=== PATIENT | female | born 1980 | race Caucasian/White ===

== ENCOUNTER 2016-09-11 09:39 | Emergency (ER) | payer OTHER ==
[2016-09-11 09:47] VITALS: BP 158/72; PULSE 82; TEMP 98.5; BMI 45.9
--- NOTE | 2016-09-11 09:47 | PDOC ---
History of Present Illness - General History Source: Patient, EMS, Old Records Exam Limitations: No Limitations - History of Present Illness Initial Comments: 09/11/16 10:07 The patient is a 35 year old female with a significant past medical history of spinal stenosis, morbid obesity, fibromyalgia,polycystic ovary disease, BIBA to the emergency department today for further evaluation of a varicose vein rupture just prior to presenting and leg swelling for one week. The patient states that she scratched her varicose vein and began to bleed profusely. The patient reports associated bilateral lower extremity swelling and headache. The patient notes that she has had leg swelling previously and that it normally occurs in the Summer. PAST MEDICAL HISTORY: No significant history reported PAST SURGICAL HISTORY: No significant history reported FAMILY HISTORY: No pertinent history reported SOCIAL HISTORY: None reported ALLERGIES: As per nursing notes MEDICATIONS: Reviewed <Eddie Timmons - Last Filed: 09/11/16 10:06> - General History Source: Patient, Old Records Exam Limitations: No Limitations <Gabby Bill - Last Filed: 09/11/16 10:15> - General Chief Complaint: Injury Stated Complaint: varicose vein BLEEDING Time Seen by Provider: 09/11/16 09:47 Past History - Past Medical History Other medical history: spinal stenosis, morbid obestiy, fibromyalgia,polycystic ovary disease - Psycho/Social/Smoking Cessation Hx Anxiety: No Suicidal Ideation: No Smoking History: Never smoked Have you smoked in the past 12 months: No Information on smoking cessation initiated: No Hx Alcohol Use: No Drug/Substance Use Hx: No Substance Use Type: None <Gabby Bill - Last Filed: 09/11/16 10:15> Review of Systems - Review of Systems Able to Perform ROS?: Yes Comments:: 09/11/16 10:07 CONSTITUTIONAL: Absent: fever, chills, diaphoresis, generalized weakness, malaise, loss of appetite HEENT: Absent: rhinorrhea, nasal congestion, throat pain, throat swelling, difficulty swallowing, mouth swelling, ear pain, eye pain, visual Changes CARDIOVASCULAR: Absent: chest pain, syncope, palpitations, irregular heart rate, lightheadedness , peripheral edema RESPIRATORY: Absent: cough, shortness of breath, dyspnea with exertion, orthopnea, wheezing, stridor, hemoptysis GASTROINTESTINAL: Absent: abdominal pain, abdominal distension, nausea, vomiting, diarrhea, constipation, melena, hematochezia GENITOURINARY: Absent: dysuria, frequency, urgency, hesitancy, hematuria, flank pain, genital pain MUSCULOSKELETAL: Absent: myalgia, arthralgia, joint swelling SKIN: Absent: rash, itching, pallor HEMATOLOGIC/IMMUNOLOGIC: Absent: easy bleeding, easy bruising, lymphadenopathy, frequent infections ENDOCRINE: Present: Bilateral lower extremity swelling Absent: unexplained weight gain, unexplained weight loss, heat intolerance, cold intolerance NEUROLOGIC: Present: Headache Absent:, focal weakness or paresthesias, dizziness, unsteady gait, seizure, mental status changes, bladder or bowel incontinence PSYCHIATRIC: Absent: anxiety, depression, suicidal or homicidal ideation, hallucinations. <Eddie Timmons - Last Filed: 09/11/16 10:06> *Physical Exam - Vital Signs Last Vital Signs Temp Pulse Resp BP Pulse Ox 98.5 F 82 18 158/72 100 09/11/16 09:44 09/11/16 09:44 09/11/16 09:44 09/11/16 09:44 09/11/16 09:44 - Physical Exam Comments: 09/11/16 10:07 GENERAL: Well developed, well nourished. Awake and alert. In no acute distress. HEENT: Normocephalic, atraumatic. PERRLA, EOMI. No conjunctival pallor. Sclera are non- icteric. Moist mucous membranes. Oropharynx is clear. NECK: Supple. Full ROM. No JVD. Carotid pulses 2+ and symmetric, without bruits. No thyromegaly. No lymphadenopathy. CARDIOVASCULAR: Regular rate and rhythm. No murmurs, rubs, or gallops. Distal pulses are 2+ and symmetric. PULMONARY: No evidence of respiratory distress. Lungs clear to auscultation bilaterally. No wheezing, rales or rhonchi. ABDOMINAL: Soft. Non-tender. Non-distended. No rebound or guarding. No organomegaly. Normoactive bowel sounds. MUSCULOSKELETAL Normal range of motion at all joints. No bony deformities or tenderness. No CVA tenderness. EXTREMITIES: (+) Bilateral 1+ lower extremity edema with varicosity but no active bleeding. SKIN: Warm and dry. Normal capillary refill. No rashes. No jaundice. NEUROLOGICAL: Alert, awake, appropriate. Cranial nerves 2-12 intact. No deficits to light touch and temperature in face, upper extremities and lower extremities. No motor deficits in the in face, upper extremities and lower extremities. Normoreflexic in the upper and lower extremities. Normal speech. Toes are downgoing bilaterally. Gait is normal without ataxia. PSYCHIATRIC: Cooperative. Good eye contact. Appropriate mood and affect. <Eddie Timmons - Last Filed: 09/11/16 10:06> - Vital Signs Last Vital Signs Temp Pulse Resp BP Pulse Ox 98.5 F 82 18 158/72 100 09/11/16 09:44 09/11/16 09:44 09/11/16 09:44 09/11/16 09:44 09/11/16 09:44 <Gabby Bill - Last Filed: 09/11/16 10:15> Medical Decision Making - Medical Decision Making 09/11/16 09:57 35 y/o obese female with no significant PMHx presents to the ED with a bleeding varicose vein in her LLE that has stopped. Plan: 1. Discharge home 2. Follow-up with vascular surgery and PCP 3. Return to the ED if Sx persist, worsen or new Sx arise <Gabby Bill - Last Filed: 09/11/16 10:15> *DC/Admit/Observation/Transfer - Attestations Scribe Attestion: 09/11/16 10:07 Documentation prepared by Eddie Timmons, acting as medical staffing coordinator for Gabby Bill MD. <Eddie Timmons - Last Filed: 09/11/16 10:06> - Discharge Dispostion Admit: No - Attestations Physician Attestion: 09/11/16 09:59 I, Dr. Gabby Bill, attest that the scribes documentation that appears above has been prepared under my direction and personally reviewed by me in its entirety. I confirmed that the note above accurately reflects all work, treatment, procedures, and medical decision-making performed by me. <Gabby Bill - Last Filed: 09/11/16 10:15> Diagnosis at time of Disposition: Bleeding from varicose veins of left lower extremity - Discharge Dispostion Disposition: HOME Condition at time of disposition: Stable - Patient Instructions Printed Discharge Instructions: DI for Varicose Veins Additional Instructions: Follow-up with vascular surgery-Peter Anderson MD [phone] and for primary care, you may call Dr. Cortez [phone]. Your blood pressure is mildly elevated. To decrease the swelling in your legs, limit your salt intake and elevate your legs as much as possible. Do not scratch the area or pick at the scab. If bleeding recurs, apply direct pressure to the bleeding. Return to the ED if symptoms persist, worsen or new symptoms arise.
== END 2016-09-11 10:43 | disposition home or self-care (01) ==
LOC: JER 09:39
DX: I83.892 Varicose veins of left lower extremity with other complications (principal); E66.01 Morbid (severe) obesity due to excess calories; Z68.42 Body mass index [BMI] 45.0-49.9, adult; M48.00 Spinal stenosis, site unspecified; M79.7 Fibromyalgia; E28.2 Polycystic ovarian syndrome
CPT/HCPCS: 99281-25

== ENCOUNTER 2017-08-30 19:55 | Emergency (ER) | payer OTHER ==
[2017-08-30 20:31] VITALS: BP 167/97; PULSE 67; TEMP 98.1; BMI 46.5
[2017-08-30] MEDS ORDERED: ALBUTEROL SO4 0.083% IH SOL 2.5 MG/3 ML VIAL.NEB. NEB PRN (21:42)
--- NOTE | 2017-08-30 21:43 | PDOC ---
History of Present Illness - General Chief Complaint: Cold Symptoms Stated Complaint: S.O.B Time Seen by Provider: 08/30/17 20:31 History Source: Patient Exam Limitations: No Limitations - History of Present Illness Initial Comments: 08/30/17 22:25 36-year-old woman with past medical history fibromyalgia presents emergency Department with fever, facial pain, productive cough for the past 2 weeks. Patient states her daughter is very similar symptoms approximately 3 weeks ago after 1 week of the child being sick the mother began to experience similar symptoms. Patient has not checked her aperture but reports subjective fevers to go along with a productive cough. Patient states her facial pain worsens when leaning forward. Patient reports purulent nasal drainage for the past 14 days. Patient denies any blurry vision, dizziness, headaches, shortness of breath. Past History - Past Medical History Allergies/Adverse Reactions: Allergies Allergy/AdvReac Type Severity Reaction Status Date / Time Penicillins Allergy Verified 08/30/17 20:27 Sulfa (Sulfonamide Allergy Verified 08/30/17 20:27 Antibiotics) Home Medications: Ambulatory Orders Buprenorphine HCl/Naloxone HCl [Suboxone 8 mg-2 mg Sl Tablets] 1 each SL TID Topiramate [Topamax -] 250 mg PO DAILY 09/11/16 Zolpidem Tartrate [Ambien] 5 mg PO HS 09/11/16 Fluconazole 150 mg PO ONCE #1 tablet 08/30/17 Ibuprofen 600 mg PO ASDIR 08/30/17 levoFLOXacin [Levaquin] 750 mg PO DAILY #5 tab 08/30/17 - Suicide/Smoking/Psychosocial Hx Smoking History: Current every day smoker Have you smoked in the past 12 months: No Number of Cigarettes Smoked Daily: 10 Information on smoking cessation initiated: Yes Hx Alcohol Use: No Drug/Substance Use Hx: No Substance Use Type: None Review of Systems - Review of Systems Able to Perform ROS?: Yes Is the patient limited Luxembourgish proficient: No Constitutional: Yes: See HPI HEENTM: Yes: See HPI Respiratory: Yes: See HPI Cardiac (ROS): No: Symptoms Reported ABD/GI: No: Symptoms Reported : No: Symptoms Reported Musculoskeletal: No: Symptoms Reported Integumentary: No: Symptoms Reported Neurological: No: Symptoms reported Endocrine: No: Symptoms Reported *Physical Exam - Vital Signs Last Vital Signs Temp Pulse Resp BP Pulse Ox 98.1 F 67 18 167/97 100 08/30/17 20:25 08/30/17 20:25 08/30/17 20:25 08/30/17 20:25 08/30/17 20:25 - Physical Exam HEENT: positive: EOMI, ARMANI, TMs Normal, Nasal Congestion, Rhinorrhea, Sinus Tenderness Neck: positive: Trachea midline, Supple Respiratory/Chest: positive: Lungs Clear, Wheezing (Expirational). negative: Respiratory Distress, Accessory Muscle Use Cardiovascular: positive: Regular Rhythm, Regular Rate. negative: Murmur Gastrointestinal/Abdominal: positive: Normal Bowel Sounds, Soft. negative: Tender Musculoskeletal: positive: Normal Inspection. negative: CVA Tenderness Extremity: positive: Normal Inspection Integumentary: positive: Normal Color, Dry, Warm Neurologic: positive: Alert, Normal Response ED Treatment Course - RADIOLOGY Radiology Studies Ordered: Category Date Time Status CHEST PA & LAT [RAD] Stat Radiology 08/30/17 21:42 Ordered Medical Decision Making - Medical Decision Making 08/30/17 22:27 A/P: 36-year-old female with 2 weeks of fevers, productive cough and sinus congestion and tenderness Tenderness to palpation of maxillary and frontal sinuses Nasal congestion present Oropharynx clear without erythema or exudates Lungs clear with expiratory wheezes present Speaking full sentences. No respiratory distress noted Patient likely has an acute sinusitis given productive cough and subjective fevers cannot rule out a pneumonia. Chest x-ray, albuterol treatment, reassess 08/30/17 22:30 Chest x-rays read by me: Angles clear. Cardiac silhouette is within normal limits. No focal infiltrations or consolidations present. Visualized osseous structures intact. No pneumothorax is seen. Given chest x-ray findings, it is less likely that the child has a pneumonia. Patient is a daily smoker one pack per day and likely has a chronic bronchitis. I will treat the current bronchitis with Levaquin 750 mg orally once a day for 5 days which will cover an acute sinusitis also. Patient verbalizes understanding of discharge instructions. *DC/Admit/Observation/Transfer Diagnosis at time of Disposition: Chronic bronchitis with acute exacerbation Sinusitis, acute Qualifiers: Sinusitis location: maxillary Recurrence: not specified as recurrent Qualified Code(s): J01.00 - Acute maxillary sinusitis, unspecified - Discharge Dispostion Disposition: HOME Condition at time of disposition: Stable - Prescriptions Prescriptions: Fluconazole 150 mg PO ONCE #1 tablet levoFLOXacin [Levaquin] 750 mg PO DAILY #5 tab - Referrals Referrals: Diamante Peña MD [Primary Care Provider] - - Patient Instructions Printed Discharge Instructions: DI for Chronic Bronchitis, DI for Sinusitis Additional Instructions: Take Levaquin 750 mg 1 tablet every day for the next 5 days. Finish all the antibiotics even if he started to feel better. Return to emergency department for fevers, chills, worsening symptoms or any other concerns. Stop smoking. Thank you very much for choosing us to provide your emergent healthcare needs. - Post Discharge Activity
[2017-08-30] MEDS ORDERED: ALBUTEROL SO4 0.083% IH SOL 2.5 MG/3 ML VIAL.NEB. NEB ONE (21:44)
== END 2017-08-30 22:47 | disposition home or self-care (01) ==
LOC: JERFT 19:55
PROC: 3E0F7GC Introduction of Other Therapeutic Substance into Respiratory Tract, Via Natural or Artificial Opening (ICD-10-PCS; principal; 2017-08-30)
DX: J42 Unspecified chronic bronchitis (principal); J01.00 Acute maxillary sinusitis, unspecified
CPT/HCPCS: 71046-TC-FY; 84703; 99281-25

== ENCOUNTER 2018-06-08 17:50 | Inpatient (IN) | payer OTHER ==
[2018-06-08 18:45] VITALS: BMI 48.3
--- NOTE | 2018-06-08 19:04 | HP ---
COWS - Scale Resting Pulse: 1= [place] 81-100 Sweatin= Chills/Flushing Restless Observation: 3= Extraneous Movement Pupil Size: 1= Pupils >than Normal Bone or Joint Aches: 2= Severe Diffuse Aches Runny Nose/ Eye Tearin= Runny Nose/Eyes GI Upset > 30mins: 2= Nausea/Diarrhea Tremor Observation: 2= Slight Tremor Visible Yawning Observation: 2= >3x During Session Anxiety or Irritability: 2=Irritable/Anxious Goose Flesh Skin: 0=Smooth Skin COWS Score: 18 CIWA Score Nausea/Vomitin Muscle Tremors: 2 Anxiety: 2 Agitation: 2 Paroxysmal Sweats: 1-Minimal Palms Moist Orientation: 0-Oriented Tacttile Disturbances: 1-Very Mild Itch/Numbness Auditory Disturbances: 1-Very Mild Visual Disturbances: 0-None Headache: 2-Mild CIWA-Ar Total Score: 13 - Admission Criteria [facility] Guidelines: Admission for Medically Managed Detox: Requires at least one of the followin. CIWA greater than 12 2. Seizures within the past 24 hours 3. Delirium tremens within the past 24 hours 4. Hallucinations within the past 24 hours 5. Acute intervention needed for co occurring medical disorder 6. Acute intervention needed for co occurring psychiatric disorder 7. Severe withdrawal that cannot be handled at a lower level of care (continued vomiting, continued diarrhea, abnormal vital signs) requiring intravenous medication and/or fluids 8. Admission ROS S - [facility] Chief Complaint: i need help to stop using heroin and alcohol Allergies/Adverse Reactions: Allergies Allergy/AdvReac Type Severity Reaction Status Date / Time codeine Allergy Verified 06/08/18 19:01 Penicillins Allergy Verified 06/08/18 18:59 Sulfa (Sulfonamide Allergy Verified 06/08/18 18:59 Antibiotics) History of Present Illness: this 37 years old female with heroin and alcohol dependence seeking detox, withdrawal symptom, i stop showed patient is on suboxone but stated she did not used suboxone since 05/23/18 last treatment in 11/10 [facility] obesity nicotine dependence 1 pack bipolar disorder on medication suicidal attempt overdose at age of 11,cutter at age of 17 longest sobriety 8 years plan for methadone program at [facility] had 6 years old boy,staying with the child father,and gand mother from mother side Exam Limitations: No Limitations - Ebola screening Have you traveled outside of the country in the last 21 days: No (N) Have you had contact with anyone from an Ebola affected area: No Have you been sick,other than usual withdrawal symptoms: No Do you have a fever: No - Review of Systems Constitutional: Chills, Loss of Appetite, Malaise, Night Sweats, Changes in sleep, Weakness, Unintentional Wgt. Loss EENT: reports: Tearing, Nose Congestion Respiratory: reports: No Symptoms reported Cardiac: reports: No Symptoms Reported GI: reports: Diarrhea, Nausea, Vomiting, Abdominal cramping : reports: No Symptoms Reported Musculoskeletal: reports: Back Pain, Joint Pain, Muscle Pain, Joint Stiffness Integumentary: reports: Dryness Neuro: reports: Tremors Endocrine: reports: No Symptoms Reported Hematology: reports: No Symptoms Reported Psychiatric: reports: No Sypmtoms Reported, Judgement Intact, Mood/Affect Appropiate, Orientated x3, other (bipolar disorder) Patient History - Patient Medical History Hx Anemia: No Hx Asthma: No Hx Chronic Obstructive Pulmonary Disease (COPD): No Hx Cancer: No Hx Cardiac Disorders: No Hx Congestive Heart Failure: No Hx Hypertension: No Hx Hypercholesterolemia: No Hx Pacemaker: No HX Cerebrovascular Accident: No Hx Seizures: No Hx Dementia: No Hx Diabetes: No Hx Gastrointestinal Disorders: No Hx Liver Disease: No Hx Genitourinary Disorders: No Hx Sexually Transmitted Disorders: No Hx Renal Disease (ESRD): No Hx Thyroid Disease: No Hx Human Immunodeficiency Virus (HIV): No (last 11/09 negative) Hx Hepatitis C: No Hx Depression: Yes Hx Suicide Attempt: Yes (AGE 11 ovedose,cutter age 17) Hx Bipolar Disorder: Yes Hx Schizophrenia: No Other Medical History: no suicidal,no homicidal,fibromyalgia - Patient Surgical History Past Surgical History: No - PPD History Previous Implant?: Yes Documented Results: Negative w/o proof Implanted On Prior R Admission?: Yes PPD to be Administered?: Yes - Reproductive History Patient is a Female of Child Bearing Age (11 -55 yrs old): Yes Last Menstrual Period: 05/22/18 Patient : No - Smoking Cessation Smoking history: Current every day smoker Have you smoked in the past 12 months: No Aproximately how many cigarettes per day: 20 Cigars Per Day: 0 Hx Chewing Tobacco Use: No Initiated information on smoking cessation: Yes 'Breaking Loose' booklet given: 06/08/18 - Substance & Tx. History Hx Alcohol Use: Yes Hx Substance Use: Yes Substance Use Type: Alcohol, Heroin Hx Substance Use Treatment: Yes ([facility] 11/09) - Substances Abused Heroin Route: Inhalation Frequency: Daily Amount used: 4 to 5 bags Age of first use: 14 Date of Last Use: 06/08/18 Alcohol Route: Oral Frequency: Daily Amount used: 1pint of rum Age of first use: 10 Date of Last Use: 06/08/18 Family Disease History - Family Disease History Family Disease History: Diabetes: Father (ALCOHOLISM, HTN/HLD), Heart Disease: Father, Mother (HTN/HLD, ), CA: Mother, Other: Grandparent (ALCOHOLISM), Father , Brother (MENTAL HEALTH/ADDICTS/ ALCOHOLISM) Admission Physical Exam [facility] - Vital Signs Vital Signs: Vital Signs - 24 hr 06/08/18 18:42 Temperature 98.6 F Pulse Rate 88 Respiratory 18 Rate Blood Pressure 153/97 - Physical General Appearance: Yes: Moderate Distress, Obese, Tremorous, Irritable, Sweating, Anxious HEENTM: Yes: Normal ENT Inspection, ARMANI, Pharynx Normal Respiratory: Yes: Lungs Clear, Normal Breath Sounds, No Respiratory Distress Neck: Yes: Within Normal Limits, Supple, Trachea in good position Breast: Yes: Breast Exam Deferred Cardiology: Yes: Within Normal Limits, Regular Rhythm, Regular Rate, S1, S2 Abdominal: Yes: Within Normal Limits, Normal Bowel Sounds, Non Tender, Soft Genitourinary: Yes: Within Normal Limits Back: Yes: Muscle Spasm Musculoskeletal: Yes: full range of Motion, Back pain, Muscle Pain Extremities: Yes: Normal Range of Motion, Tremors Neurological: Yes: hi teacher II-XII NML intact, Alert, Motor Strength 5/5 Integumentary: Yes: Dry Lymphatic: Yes: Within Normal Limits - Diagnostic (1) Opioid dependence with withdrawal Current Visit: Yes Status: Acute (2) Alcohol dependence with uncomplicated withdrawal Current Visit: Yes Status: Acute (3) Obesity Current Visit: Yes Status: Acute (4) Varicose veins of both legs with edema Current Visit: Yes Status: Acute (5) Nicotine dependence Current Visit: Yes Status: Acute (6) Bipolar disorder Current Visit: Yes Status: Acute (7) Fibromyalgia Current Visit: Yes Status: Acute Cleared for Admission [facility] - Detox or Rehab [facility] Level of Care: Medically Managed Detox Regimen/Protocol: Methadone/Librium [facility] Breath Alcohol Content Breath Alcohol Content: 0.068 Urine Pregancy Test - Result Urine Test Results: Negative - NO Line Present Urine Drug Screen - Results Drug Screen Negative: No Urine Drug Screen Results: REN-Cocaine, OPI-Opiates, FEN-Fentanyl, BUP-Suboxone Inpatient Rehab Admission - Rehab Decision to Admit Inpatient rehab admission?: No
[2018-06-08] MEDS ORDERED: IBUPROFEN 400 MG TABLET (FP) PO PRN (19:17)
[2018-06-08] MEDS ORDERED: ACETAMINOPHEN 325 MG TABLET (FP) PO PRN ×2 (19:17)
[2018-06-08] MEDS ORDERED: hydrOXYzine PAMOATE 25 MG CAPSULE (FP) PO PRN (19:17)
[2018-06-08] MEDS ORDERED: MAGNESIUM HYDROX 2400MG/30ML ORAL SUSPENSION 30 ML CUP PO PRN (19:17)
[2018-06-08] MEDS ORDERED: MELATONIN 5 MG TABLETS PO PRN (19:17)
[2018-06-08] MEDS ORDERED: MAGNESIUM CITRATE 300 ML BOTTLE PO PRN (19:17)
[2018-06-08] MEDS ORDERED: METHOCARBAMOL 500 MG TABLET PO PRN (19:17)
[2018-06-08] MEDS ORDERED: BISMUTH SUBSALICYLATE 524 MG/30 ML UD PO PRN (19:17)
[2018-06-08] MEDS ORDERED: NICOTINE POLACRILEX 2 MG GUM BUC PRN (19:17)
[2018-06-08] MEDS ORDERED: MENTHOL/PHENOL 1 EACH UD MM PRN (19:17)
[2018-06-08] MEDS ORDERED: MAG HYDROX/AL HYDROX/SIMETH 30 ML UNIT-DOSE CUP PO PRN (19:17)
[2018-06-08] MEDS ORDERED: cloNIDine HCL 0.1 MG TABLET PO PRN (19:17)
[2018-06-08] MEDS ORDERED: diazePAM 5 MG TABLET PO PRN (19:20)
[2018-06-08] MEDS ORDERED: METHADONE HCL 10 MG TABLET (FOR DETOX USE ONLY) PO ONE ×2 (19:45→23:00)
[2018-06-08] MEDS ORDERED: chlordiazePOXIDE HCL 25 MG CAPSULE PO PRN (20:26)
[2018-06-08] MEDS: NICOTINE 21 MG/24 HOURS TOPICAL PATCH TD SCH (21:17)
[2018-06-08] MEDS ORDERED: diazePAM 5 MG TABLET PO SCH (22:00)
[2018-06-08] MEDS ORDERED: THIAMINE HCL 100 MG TABLET (FP) PO SCH (22:00)
[2018-06-08] MEDS: chlordiazePOXIDE HCL 25 MG CAPSULE PO SCH (22:05)
[2018-06-09] MEDS: chlordiazePOXIDE HCL 25 MG CAPSULE PO SCH ×2 (05:51→10:13)
[2018-06-09 09:57] LABS: HEMATOCRIT 39.3 % (32.4-45.2); HEMOGLOBIN 13.8 GM/dL (10.7-15.3); MCH 33.3 pg (25.7-33.7); MCHC 35.2 g/dl (32.0-36.0); MEAN CELL VOLUME 94.4 fl (80-96); MEAN PLT VOLUME 9.2 fl (7.5-11.1); PLATELET COUNT 89 K/MM3 (134-434); RBC 4.16 M/mm3 (3.60-5.2); RDW 14.3 % (11.6-15.6); WHITE BLOOD COUNT 5.6 K/mm3 (4.0-10.0)
[2018-06-09] MEDS ORDERED: PRENATAL VITAMINS W/ FOLIC ACID TABLET (FP) PO SCH (10:00)
[2018-06-09] MEDS ORDERED: METHADONE HCL 10 MG TABLET (FOR DETOX USE ONLY) PO ONE (10:00)
[2018-06-09 10:09] LABS: ALBUMIN 3.2 g/dl (3.4-5.0); ALK PHOS 88 U/L (45-117); ANION GAP 6 MMOL/L (8-16); BILIRUBIN,TOTAL 0.2 mg/dL (0.2-1); BLOOD UREA NITROGEN 9 mg/dL (7-18); CALCIUM 7.7 mg/dL (8.5-10.1); CHLORIDE 108 mmol/L (98-107); CO2 25 mmol/L (21-32); CREATININE 0.8 mg/dL (0.55-1.3); GLUCOSE,RANDOM 105 mg/dL (74-106); POTASSIUM 3.6 mmol/L (3.5-5.1); SGOT/AST 33 U/L (15-37); SGPT/ALT 42 U/L (13-61); SODIUM 139 mmol/L (136-145)
[2018-06-09] MEDS: NICOTINE 21 MG/24 HOURS TOPICAL PATCH TD SCH (10:13)
--- NOTE | 2018-06-09 10:32 | PN ---
[facility] CIWA - CIWA Score Nausea/Vomitin-No Nausea/No Vomiting Muscle Tremors: 4-Moderate,w/Arms Extend Anxiety: 3 Agitation: 3 Paroxysmal Sweats: 3 Orientation: 0-Oriented Tacttile Disturbances: 0-None Auditory Disturbances: 0-None Visual Disturbances: 0-None Headache: 0-None Present CIWA-Ar Total Score: 13 [facility] COWS - Scale Resting Pulse: 0= [place] 80 or Below Sweatin= Chills/Flushing Restless Observation: 0= Sits Still Pupil Size: 0= Normal to Room Light Bone or Joint Aches: 0= None Runny Nose/ Eye Tearin= Nasal Congestion GI Upset > 30mins: 2= Nausea/Diarrhea Tremor Observation of Outstretched Hands: 2= Slight Tremor Visible Yawning Observation: 2= >3x During Session Anxiety or Irritability: 2=Irritable/Anxious Goose Flesh Skin: 3=Piloerection COWS Score: 13 [facility] Progress Note (SOAP) Subjective: sweats shakes interrupted sleep body aches nasal congestion i have a UTI Objective: 06/09/18 10:31 Vital Signs Temperature 97.7 F 06/09/18 09:24 Pulse Rate 52 L 06/09/18 09:24 Respiratory Rate 18 06/09/18 09:24 Blood Pressure 106/54 L 06/09/18 09:24 O2 Sat by Pulse Oximetry (%) Laboratory Tests 06/09/18 07:40 Sodium 139 Potassium 3.6 Chloride 108 H Carbon Dioxide 25 Anion Gap 6 L BUN 9 Creatinine 0.8 Creat Clearance w eGFR 79.85 Random Glucose 105 Calcium 7.7 L Total Bilirubin 0.2 AST 33 ALT 42 Alkaline Phosphatase 88 Total Protein 6.0 L Albumin 3.2 L labs pending aaox3 ambulating no acute distress Assessment: 06/09/18 10:32 withdrawal sx Plan: continue detox increase fluids u/a ordered nitrofurantoin q6hr x 7 days
[2018-06-09] MEDS ORDERED: NITROFURANTOIN MACROCRYSTAL 50 MG CAPSULE (FP) PO SCH (12:00)
[2018-06-09 17:02] VITALS: BP 141/67; PULSE 62; TEMP 98.2
--- NOTE | 2018-06-09 17:04 | DS ---
[facility] Detox Discharge Summary Admission Date: 06/08/18 Discharge Date: 06/09/18 - History Present History: Alcohol Dependence, Opioid Dependence Additional Comments: PATIENT REPORTS THAT SHE HAS A FAMILY EMERGENCY AND THAT SHE DOES NOT WISH TO REMAIN TO COMPLETE DETOX REGIMEN. RISKS OF LEAVING DETOX UNIT AGAINST MEDICAL ADVICE AND PRIOR TO COMPLETION OF DETOX REGIMEN EXPLAINED TO PATIENT. PATIENT ADVISED TO GO IMMEDIATELY TO NEAREST ER SHOULD ANY INTOLERABLE DETOX SYMPTOMS DEVELOP AT ANY TIME. FOLLOW-UP PRESCRIPTION FOR NITROFURANTOIN (STARTED EARLIER TODAY WHILE ADMITTED FOR DETOX FOR UTI) SENT TO PATIENT'S PHARMACY ([place], [place]) FOR FOLLOW-UP AFTERCARE. PATIENT ADVISED TO COMPLETE FULL COURSE OF ANTIBIOTIC AND TO INCREASE DAILY PO WATER INTAKE OVER NEXT FEW DAYS. PATIENT ADVISED TO FOLLOW-UP WITH [facility] ([place], [place] WHEN POSSIBLE FOR GENERAL MEDICAL ASSESSMENT AND FOR HISTORY OF UTI DIAGNOSED AND FOR LOW PLATELET COUNT NOTED WHILE SHE WAS ADMITTED FOR DETOX. COPIES OF RESULTS OF ALL LABS DRAWN WHILE ADMITTED FOR DETOX GIVEN TO PATIENT AT TIME OF DISCHARGE FROM DETOX UNIT. PATIENT VERBALIZED UNDERSTANDING OF ALL INFORMATION / RECOMMENDATIONS PRESENTED TO HER PRIOR TO DEPARTURE FROM DETOX UNIT. PATIENT LEFT DETOX UNIT IN STABLE MEDICAL CONDITION. Pertinent Past History: History of Depression, History of Bipolar Disorder, History of Fibromyalgia, History of Varicose Veins of Bilateral Legs, Nicotine Dependence, UTI. - Physical Exam Results Vital Signs: Vital Signs Temperature 97.9 F 06/09/18 13:31 Pulse Rate 49 L 06/09/18 13:31 Respiratory Rate 18 06/09/18 13:31 Blood Pressure 140/83 06/09/18 13:31 O2 Sat by Pulse Oximetry (%) Pertinent Admission Physical Exam Findings: WITHDRAWAL SYMPTOMS. Laboratory Tests 06/09/18 06/09/18 06/09/18 07:40 07:40 07:40 WBC 5.6 RBC 4.16 Hgb 13.8 Hct 39.3 MCV 94.4 MCH 33.3 MCHC 35.2 RDW 14.3 Plt Count 89 L MPV 9.2 Sodium 139 Potassium 3.6 Chloride 108 H Carbon Dioxide 25 Anion Gap 6 L BUN 9 Creatinine 0.8 Creat Clearance w eGFR 79.85 Random Glucose 105 Calcium 7.7 L Total Bilirubin 0.2 AST 33 ALT 42 Alkaline Phosphatase 88 Total Protein 6.0 L Albumin 3.2 L RPR Titer Nonreactive LABS NOTED. - Treatment Hospital Course: Detox Protocol Followed, Detoxed Safely - Medication Discharge Medications: Ambulatory Orders Topiramate [Topamax -] 250 mg PO DAILY 09/11/16 Zolpidem Tartrate [Ambien] 5 mg PO HS 09/11/16 Fluconazole 150 mg PO ONCE #1 tablet 08/30/17 Ibuprofen 600 mg PO ASDIR 08/30/17 levoFLOXacin [Levaquin] 750 mg PO DAILY #5 tab 08/30/17 Nitrofurantoin Monohyd/M-Cryst [Macrobid -] 100 mg PO BID 5 Days #10 capsule - Diagnosis (1) Alcohol dependence with uncomplicated withdrawal Current Visit: Yes Status: Acute (2) Bipolar disorder Current Visit: Yes Status: Acute Qualifiers: Active/Remission status: remission status unspecified Qualified Code(s): F31.9 - Bipolar disorder, unspecified (3) Fibromyalgia Current Visit: Yes Status: Chronic (4) Nicotine dependence Current Visit: Yes Status: Acute Qualifiers: Nicotine product type: cigarettes Substance use status: uncomplicated Qualified Code(s): F17.210 - Nicotine dependence, cigarettes, uncomplicated (5) Obesity Current Visit: Yes Status: Acute Qualifiers: Obesity type: unspecified obesity type Obesity classification: adult class 3 (BMI >= 40) Serious obesity comorbidity presence: unspecified whether serious comorbidity present Body mass index: BMI 45.0-49.9 Qualified Code(s) : E66.01 - Morbid (severe) obesity due to excess calories; Z68.42 - Body mass index (BMI) 45.0-49.9, adult (6) Opioid dependence with withdrawal Current Visit: Yes Status: Acute (7) Varicose veins of both legs with edema Current Visit: Yes Status: Chronic (8) Urinary tract infection Current Visit: Yes Status: Acute Qualifiers: Urinary tract infection type: site unspecified Hematuria presence: without hematuria Qualified Code(s): N39.0 - Urinary tract infection, site not specified - AMA Did Patient Leave Against Medical Advice: Yes (PT. HAD FAMILY EMERGENCY AND DID NOT WISH TO COMPLETE DETOX REGIMEN.)
--- NOTE | 2018-06-09 22:52 | EKG ---
Test Reason : Blood Pressure : / mmHG Vent. Rate : 094 BPM Atrial Rate : 094 BPM P-R Int : 186 ms QRS Dur : 102 ms QT Int : 356 ms P-R-T Axes : 053 037 040 degrees QTc Int : 445 ms NORMAL SINUS RHYTHM NORMAL ECG NO PREVIOUS ECGS AVAILABLE Confirmed by MITCH ROSALES MD ([id number]) on 06/09/2018 10:52:37 PM Referred By: Confirmed By:MITCH ROSALES MD
[2018-06-09] MEDS ORDERED: chlordiazePOXIDE HCL 25 MG CAPSULE PO SCH (23:00)
[2018-06-10] MEDS ORDERED: METHADONE HCL 10 MG TABLET (FOR DETOX USE ONLY) PO ONE (10:00)
[2018-06-10] MEDS ORDERED: diazePAM 5 MG TABLET PO SCH (10:00)
[2018-06-10] MEDS ORDERED: chlordiazePOXIDE HCL 10 MG CAPSULE PO PRN (23:00)
[2018-06-10] MEDS ORDERED: chlordiazePOXIDE HCL 10 MG CAPSULE PO SCH (23:00)
[2018-06-11] MEDS ORDERED: diazePAM 5 MG TABLET PO SCH (06:00)
[2018-06-11] MEDS ORDERED: METHADONE HCL 10 MG TABLET (FOR DETOX USE ONLY) PO ONE (10:00)
[2018-06-11] MEDS ORDERED: chlordiazePOXIDE HCL 10 MG CAPSULE PO SCH (23:00)
[2018-06-12] MEDS ORDERED: METHADONE HCL 5 MG TABLET (FOR DETOX USE ONLY) PO ONE (06:00)
== END 2018-06-09 05:13 | disposition left against medical advice (07) | DRG 770 ==
LOC: YASAS 17:50 → Y6N 19:15
PROVIDERS: ADMIT Surgery; ATTEND Surgery
PROC: HZ2ZZZZ Detoxification Services for Substance Abuse Treatment (ICD-10-PCS; principal; 2018-06-08)
DX: F11.23 Opioid dependence with withdrawal (principal); F10.230 Alcohol dependence with withdrawal, uncomplicated; F17.210 Nicotine dependence, cigarettes, uncomplicated; F31.9 Bipolar disorder, unspecified; M79.7 Fibromyalgia; N39.0 Urinary tract infection, site not specified; I83.893 Varicose veins of bilateral lower extremities with other complications; E66.01 Morbid (severe) obesity due to excess calories; Z68.42 Body mass index [BMI] 45.0-49.9, adult; Z88.0 Allergy status to penicillin; Z88.2 Allergy status to sulfonamides; Z88.6 Allergy status to analgesic agent; Z91.5 Personal history of self-harm
CPT/HCPCS: 36415; 80053; 85027; 86593; 93005; 93010

== ENCOUNTER 2018-10-05 21:30 | Inpatient (IN) | payer OTHER ==
[2018-10-05 22:05] VITALS: BMI 47.9
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
[2018-10-05] MEDS ORDERED: hydrOXYzine PAMOATE 25 MG CAPSULE (FP) PO PRN (22:46)
[2018-10-05] MEDS ORDERED: MAG HYDROX/AL HYDROX/SIMETH 30 ML UNIT-DOSE CUP PO PRN (22:46)
[2018-10-05] MEDS ORDERED: MELATONIN 5 MG TABLETS PO PRN (22:46)
[2018-10-05] MEDS ORDERED: MENTHOL/PHENOL 1 EACH UD MM PRN (22:46)
[2018-10-05] MEDS ORDERED: BISMUTH SUBSALICYLATE 524 MG/30 ML UD PO PRN (22:46)
[2018-10-05] MEDS ORDERED: guaiFENesin 200 MG/10 ML 10 ML UNIT-DOSE CUPS PO PRN (22:46)
[2018-10-05] MEDS ORDERED: MAGNESIUM HYDROX 2400MG/30ML ORAL SUSPENSION 30 ML CUP PO PRN (22:46)
[2018-10-05] MEDS ORDERED: ACETAMINOPHEN 325 MG TABLET (FP) PO PRN (22:46)
[2018-10-05] MEDS ORDERED: ONDANSETRON *ODT* 4 MG TABLET SL PRN (22:46)
[2018-10-05] MEDS ORDERED: DICYCLOMINE HCL 10 MG CAPSULE PO PRN (22:46)
[2018-10-05] MEDS ORDERED: MAGNESIUM CITRATE 300 ML BOTTLE PO PRN (22:46)
[2018-10-05] MEDS ORDERED: P-EPHED 60MG/TRIPROLIDI 2.5MG TABLET PO PRN (22:46)
[2018-10-05] MEDS ORDERED: chlordiazePOXIDE HCL 25 MG CAPSULE PO PRN (22:46)
[2018-10-05] MEDS ORDERED: IBUPROFEN 400 MG TABLET (FP) PO PRN (22:46)
[2018-10-05] MEDS ORDERED: TOPIRAMATE 200 MG TABLET (FP) PO SCH (23:00)
[2018-10-05] MEDS: chlordiazePOXIDE HCL 25 MG CAPSULE PO SCH (23:39)
[2018-10-05] MEDS: ACETAMINOPHEN 325 MG TABLET (FP) PO PRN (23:42)
[2018-10-06 00:39] LABS: PH,URINE 6.5 (5.0-8.0); URINE APPEARANCE CLEAR; URINE BILIRUBIN NEGATIVE (NEGATIVE); URINE COLOR YELLOW; URINE GLUCOSE (UA) NEGATIVE (NEGATIVE); URINE KETONE NEGATIVE (NEGATIVE); URINE LEUK ESTERASE 2+ (NEGATIVE); URINE NITRITE NEGATIVE (NEGATIVE); URINE PROTEIN NEGATIVE (NEGATIVE); URINE UROBILINOGEN 0.2 mg/dL (0.2-1.0)
[2018-10-06 00:42] LABS: EPI CELLS RARE /HPF (0-5/HPF); HYALINE CASTS 1 /lpf (0-8); URINE BACTERIA 23 /hpf (NEGATIVE); URINE RBC 3 /hpf (0-4); URINE WBC 45 /hpf (0-5)
[2018-10-06] MEDS: chlordiazePOXIDE HCL 25 MG CAPSULE PO SCH ×4 (05:34→22:14)
[2018-10-06] MEDS: ACETAMINOPHEN 325 MG TABLET (FP) PO PRN ×2 (05:37→12:35)
[2018-10-06] MEDS: NICOTINE POLACRILEX 2 MG GUM BUC PRN ×3 (05:51→22:20)
[2018-10-06] MEDS ORDERED: METHADONE HCL 10 MG TABLET PO ONE (09:15)
[2018-10-06] MEDS ORDERED: METHADONE 120 MG, METHADONE 30 MG PO ONE (09:40)
[2018-10-06] MEDS ORDERED: METHADONE HCL 40 MG DISPERSABLE TABLET ONE (09:53)
[2018-10-06] MEDS ORDERED: METHADONE HCL 10 MG TABLET ONE (09:53)
[2018-10-06] MEDS: GABAPENTIN 300 MG CAPSULE (FP) PO SCH ×4 (10:00→22:14)
[2018-10-06] MEDS: NICOTINE 21 MG/24 HOURS TOPICAL PATCH TD SCH (10:00)
[2018-10-06] MEDS: PRENATAL VITAMINS W/ FOLIC ACID TABLET (FP) PO SCH (10:00)
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
[2018-10-06 10:38] LABS: HEMATOCRIT 41.6 % (32.4-45.2); HEMOGLOBIN 14.3 GM/dL (10.7-15.3); MCH 32.6 pg (25.7-33.7); MCHC 34.4 g/dl (32.0-36.0); MEAN CELL VOLUME 94.9 fl (80-96); MEAN PLT VOLUME 8.2 fl (7.5-11.1); PLATELET COUNT 116 K/MM3 (134-434); RBC 4.39 M/mm3 (3.60-5.2); RDW 14.8 % (11.6-15.6); WHITE BLOOD COUNT 5.4 K/mm3 (4.0-10.0)
[2018-10-06 10:54] LABS: ALBUMIN 3.3 g/dl (3.4-5.0); BILIRUBIN,TOTAL 0.4 mg/dL (0.2-1); BLOOD UREA NITROGEN 9.5 mg/dL (7-18); CALCIUM 8.1 mg/dL (8.5-10.1); CREATININE 0.8 mg/dL (0.55-1.3); POTASSIUM 3.7 mmol/L (3.5-5.1); TOT PROT 6.2 g/dl (6.4-8.2)
--- NOTE | 2018-10-06 12:39 | PN ---
[facility] CIWA - CIWA Score Nausea/Vomitin-No Nausea/No Vomiting Muscle Tremors: 3 Anxiety: 3 Agitation: 4-Moderately Restless Paroxysmal Sweats: 3 Orientation: 0-Oriented Tacttile Disturbances: 0-None Auditory Disturbances: 0-None Visual Disturbances: 0-None Headache: 1-Very Mild CIWA-Ar Total Score: 14 S Progress Note (SOAP) Subjective: body aches headache sweats back pain irritable agitation anxiety interrupted sleep Objective: 10/06/18 12:38 Vital Signs Temperature 97.9 F 10/06/18 09:23 Pulse Rate 56 L 10/06/18 09:23 Respiratory Rate 18 10/06/18 09:23 Blood Pressure 136/64 10/06/18 09:23 O2 Sat by Pulse Oximetry (%) Laboratory Tests 10/05/18 10/05/18 10/06/18 23:25 23:25 07:00 WBC 5.4 RBC 4.39 Hgb 14.3 Hct 41.6 MCV 94.9 MCH 32.6 MCHC 34.4 RDW 14.8 Plt Count 116 L D MPV 8.2 D Sodium Potassium Chloride Carbon Dioxide Anion Gap BUN Creatinine Est GFR (CKD-EPI)AfAm Est GFR (CKD-EPI)NonAf Random Glucose Calcium Total Bilirubin AST ALT Alkaline Phosphatase Total Protein Albumin Urine Color Yellow Urine Appearance Clear Urine pH 6.5 Ur Specific [place] 1.004 L Urine Protein Negative Urine Glucose (UA) Negative Urine Ketones Negative Urine Blood 2+ H Urine Nitrite Negative Urine Bilirubin Negative Urine Urobilinogen 0.2 Ur Leukocyte Esterase 2+ H Urine WBC (Auto) 45 Urine RBC (Auto) 3 Urine Casts (Auto) 1 U Epithel Cells (Auto) Rare Urine Bacteria (Auto) 23 POC Urine HCG, Qual Negative RPR Titer 10/06/18 10/06/18 07:00 07:00 WBC RBC Hgb Hct MCV MCH MCHC RDW Plt Count MPV Sodium 141 Potassium 3.7 Chloride 108 H Carbon Dioxide 29 Anion Gap 4 L BUN 9.5 Creatinine 0.8 Est GFR (CKD-EPI)AfAm 106.88 Est GFR (CKD-EPI)NonAf 92.22 Random Glucose 94 Calcium 8.1 L Total Bilirubin 0.4 AST 21 ALT 29 Alkaline Phosphatase 92 Total Protein 6.2 L Albumin 3.3 L Urine Color Urine Appearance Urine pH Ur Specific [place] Urine Protein Urine Glucose (UA) Urine Ketones Urine Blood Urine Nitrite Urine Bilirubin Urine Urobilinogen Ur Leukocyte Esterase Urine WBC (Auto) Urine RBC (Auto) Urine Casts (Auto) U Epithel Cells (Auto) Urine Bacteria (Auto) POC Urine HCG, Qual RPR Titer Nonreactive labs noted aaox3 ambulating no acute distress Assessment: 10/06/18 12:39 withdrawal sx Plan: continue detox increase fluids lidocaine patch ordered motrin prn tylenol prn muscle relaxant prn
[2018-10-06] MEDS: LIDOCAINE 5% TOPICAL PATCH TP SCH (14:34)
[2018-10-06] MEDS: METHOCARBAMOL 500 MG TABLET PO PRN ×2 (14:39→22:18)
[2018-10-06] MEDS ORDERED: LURASIDONE HCL 40 MG TABLET PO SCH (20:00)
[2018-10-06] MEDS: LURASIDONE HCL 40 MG TABLET PO SCH (21:33)
[2018-10-06] MEDS: SUVOREXANT 10 MG TABLET PO PRN (22:13)
[2018-10-06] MEDS: THIAMINE HCL 100 MG TABLET (FP) PO SCH (22:14)
[2018-10-06] MEDS: TOPIRAMATE 200 MG, TOPIRAMATE 50 MG PO SCH (22:15)
[2018-10-06] MEDS: LIDOCAINE PATCH REMOVAL MC SCH (22:48)
[2018-10-06] MEDS: IBUPROFEN 600 MG TABLET (FP) PO PRN (23:10)
[2018-10-07] MEDS ORDERED: METHADONE HCL 10 MG TABLET ONE (04:24)
[2018-10-07] MEDS ORDERED: METHADONE HCL 40 MG DISPERSABLE TABLET ONE (04:24)
[2018-10-07] MEDS ORDERED: METHADONE HCL 40 MG DISPERSABLE TABLET PO SCH (06:00)
[2018-10-07] MEDS: METHADONE 120 MG, METHADONE 30 MG PO SCH (06:12)
[2018-10-07] MEDS: chlordiazePOXIDE HCL 25 MG CAPSULE PO SCH ×4 (06:12→22:55)
[2018-10-07] MEDS: NICOTINE 21 MG/24 HOURS TOPICAL PATCH TD SCH (10:40)
[2018-10-07] MEDS: LIDOCAINE 5% TOPICAL PATCH TP SCH (10:40)
[2018-10-07] MEDS: GABAPENTIN 300 MG CAPSULE (FP) PO SCH ×4 (10:40→22:53)
[2018-10-07] MEDS: PRENATAL VITAMINS W/ FOLIC ACID TABLET (FP) PO SCH (10:41)
[2018-10-07] MEDS: IBUPROFEN 600 MG TABLET (FP) PO PRN (10:43)
[2018-10-07] MEDS: METHOCARBAMOL 500 MG TABLET PO PRN ×2 (10:44→22:56)
[2018-10-07] MEDS: NICOTINE POLACRILEX 2 MG GUM BUC PRN (10:45)
--- NOTE | 2018-10-07 14:01 | PN ---
[facility] CIWA - CIWA Score Nausea/Vomitin-No Nausea/No Vomiting Muscle Tremors: 3 Anxiety: 3 Agitation: 3 Paroxysmal Sweats: 1-Minimal Palms Moist Orientation: 0-Oriented Tacttile Disturbances: 0-None Auditory Disturbances: 0-None Visual Disturbances: 0-None Headache: 0-None Present CIWA-Ar Total Score: 10 S Progress Note (SOAP) Subjective: back pain sweats tired interrupted sleep Objective: 10/07/18 14:00 Vital Signs Temperature 97.7 F 10/07/18 09:51 Pulse Rate 55 L 10/07/18 09:51 Respiratory Rate 20 10/07/18 09:51 Blood Pressure 144/76 10/07/18 09:51 O2 Sat by Pulse Oximetry (%) Laboratory Tests 10/05/18 10/05/18 10/06/18 23:25 23:25 07:00 WBC 5.4 RBC 4.39 Hgb 14.3 Hct 41.6 MCV 94.9 MCH 32.6 MCHC 34.4 RDW 14.8 Plt Count 116 L D MPV 8.2 D Sodium Potassium Chloride Carbon Dioxide Anion Gap BUN Creatinine Est GFR (CKD-EPI)AfAm Est GFR (CKD-EPI)NonAf Random Glucose Calcium Total Bilirubin AST ALT Alkaline Phosphatase Total Protein Albumin Urine Color Yellow Urine Appearance Clear Urine pH 6.5 Ur Specific [place] 1.004 L Urine Protein Negative Urine Glucose (UA) Negative Urine Ketones Negative Urine Blood 2+ H Urine Nitrite Negative Urine Bilirubin Negative Urine Urobilinogen 0.2 Ur Leukocyte Esterase 2+ H Urine WBC (Auto) 45 Urine RBC (Auto) 3 Urine Casts (Auto) 1 U Epithel Cells (Auto) Rare Urine Bacteria (Auto) 23 POC Urine HCG, Qual Negative RPR Titer 10/06/18 10/06/18 07:00 07:00 WBC RBC Hgb Hct MCV MCH MCHC RDW Plt Count MPV Sodium 141 Potassium 3.7 Chloride 108 H Carbon Dioxide 29 Anion Gap 4 L BUN 9.5 Creatinine 0.8 Est GFR (CKD-EPI)AfAm 106.88 Est GFR (CKD-EPI)NonAf 92.22 Random Glucose 94 Calcium 8.1 L Total Bilirubin 0.4 AST 21 ALT 29 Alkaline Phosphatase 92 Total Protein 6.2 L Albumin 3.3 L Urine Color Urine Appearance Urine pH Ur Specific [place] Urine Protein Urine Glucose (UA) Urine Ketones Urine Blood Urine Nitrite Urine Bilirubin Urine Urobilinogen Ur Leukocyte Esterase Urine WBC (Auto) Urine RBC (Auto) Urine Casts (Auto) U Epithel Cells (Auto) Urine Bacteria (Auto) POC Urine HCG, Qual RPR Titer Nonreactive labs noted aaox3 ambulating no acute distress Assessment: 10/07/18 14:00 withdrawal sx Plan: continue detox increase fluids
[2018-10-07] MEDS: LURASIDONE HCL 40 MG TABLET PO SCH (20:49)
[2018-10-07] MEDS: TOPIRAMATE 200 MG, TOPIRAMATE 50 MG PO SCH (22:54)
[2018-10-07] MEDS: SUVOREXANT 10 MG TABLET PO PRN (22:54)
[2018-10-07] MEDS: THIAMINE HCL 100 MG TABLET (FP) PO SCH (22:55)
[2018-10-07] MEDS: LIDOCAINE PATCH REMOVAL MC SCH (23:00)
[2018-10-08] MEDS ORDERED: chlordiazePOXIDE HCL 10 MG CAPSULE PO PRN
[2018-10-08] MEDS ORDERED: METHADONE HCL 10 MG TABLET ONE (03:33)
[2018-10-08] MEDS ORDERED: METHADONE HCL 40 MG DISPERSABLE TABLET ONE (03:34)
[2018-10-08] MEDS: METHADONE 120 MG, METHADONE 30 MG PO SCH (07:03)
[2018-10-08] MEDS: chlordiazePOXIDE HCL 10 MG CAPSULE PO SCH ×4 (07:03→23:02)
[2018-10-08] MEDS: IBUPROFEN 600 MG TABLET (FP) PO PRN (07:03)
[2018-10-08] MEDS: METHOCARBAMOL 500 MG TABLET PO PRN ×2 (07:04→23:01)
[2018-10-08] MEDS: PRENATAL VITAMINS W/ FOLIC ACID TABLET (FP) PO SCH (11:05)
[2018-10-08] MEDS: GABAPENTIN 300 MG CAPSULE (FP) PO SCH ×4 (11:06→22:58)
[2018-10-08] MEDS: LIDOCAINE 5% TOPICAL PATCH TP SCH (11:06)
[2018-10-08] MEDS: NICOTINE 21 MG/24 HOURS TOPICAL PATCH TD SCH (13:03)
--- NOTE | 2018-10-08 13:08 | PN ---
[facility] CIWA - CIWA Score Nausea/Vomitin-No Nausea/No Vomiting Muscle Tremors: 2 Anxiety: 1-Mildly Anxious Agitation: 2 Paroxysmal Sweats: 2 Orientation: 0-Oriented Tacttile Disturbances: 0-None Auditory Disturbances: 0-None Visual Disturbances: 0-None Headache: 0-None Present CIWA-Ar Total Score: 7 BHS Progress Note (SOAP) Subjective: sweats agitation Objective: 10/08/18 13:08 Vital Signs Temperature 97.9 F 10/08/18 13:07 Pulse Rate 70 10/08/18 13:07 Respiratory Rate 18 10/08/18 13:07 Blood Pressure 119/54 L 10/08/18 13:07 O2 Sat by Pulse Oximetry (%) aaox3 ambulating no acute distress Assessment: 10/08/18 13:08 mild withdrawal sx Plan: continue detox increase fluids
[2018-10-08] MEDS: NICOTINE POLACRILEX 2 MG GUM BUC PRN (17:36)
[2018-10-08] MEDS: LIDOCAINE PATCH REMOVAL MC SCH (22:53)
[2018-10-08] MEDS: LURASIDONE HCL 40 MG TABLET PO SCH (22:59)
[2018-10-08] MEDS: THIAMINE HCL 100 MG TABLET (FP) PO SCH (23:00)
[2018-10-08] MEDS: TOPIRAMATE 200 MG, TOPIRAMATE 50 MG PO SCH (23:00)
[2018-10-08] MEDS: SUVOREXANT 10 MG TABLET PO PRN (23:03)
[2018-10-09] MEDS ORDERED: METHADONE HCL 10 MG TABLET ONE (03:20)
[2018-10-09] MEDS ORDERED: METHADONE HCL 40 MG DISPERSABLE TABLET ONE (03:21)
[2018-10-09] MEDS: METHADONE 120 MG, METHADONE 30 MG PO SCH (05:37)
[2018-10-09] MEDS: chlordiazePOXIDE HCL 10 MG CAPSULE PO SCH ×2 (05:38→21:23)
[2018-10-09] MEDS: METHOCARBAMOL 500 MG TABLET PO PRN ×2 (05:45→23:17)
[2018-10-09] MEDS: PRENATAL VITAMINS W/ FOLIC ACID TABLET (FP) PO SCH (10:29)
[2018-10-09] MEDS: GABAPENTIN 300 MG CAPSULE (FP) PO SCH ×3 (10:30→23:16)
[2018-10-09] MEDS: NICOTINE 21 MG/24 HOURS TOPICAL PATCH TD SCH (10:30)
[2018-10-09] MEDS: LIDOCAINE 5% TOPICAL PATCH TP SCH (10:30)
--- NOTE | 2018-10-09 11:31 | PN ---
S CIWA - CIWA Score Nausea/Vomitin-No Nausea/No Vomiting Muscle Tremors: 2 Anxiety: 1-Mildly Anxious Agitation: 2 Paroxysmal Sweats: 1-Minimal Palms Moist Orientation: 0-Oriented Tacttile Disturbances: 0-None Auditory Disturbances: 0-None Visual Disturbances: 0-None Headache: 0-None Present CIWA-Ar Total Score: 6 BHS Progress Note (SOAP) Subjective: sweats anxiety Objective: 10/09/18 11:30 Vital Signs Temperature 98.2 F 10/09/18 09:51 Pulse Rate 59 L 10/09/18 09:51 Respiratory Rate 18 10/09/18 09:51 Blood Pressure 119/61 10/09/18 09:51 O2 Sat by Pulse Oximetry (%) aaox3 ambulating no acute distress Assessment: 10/09/18 11:30 mild withdrawal sx Plan: continue detox increase fluids d/c in am
[2018-10-09] MEDS ORDERED: GABAPENTIN 300 MG CAPSULE (FP) PO SCH (12:33)
--- NOTE | 2018-10-09 12:43 | PN ---
[facility] Progress Note Note: pt was seen today she was arousalable and walking throughout the unit. pt then went back to her bed. pt aaox3. however, received call from her counselor that pt was doing a phone interview and appeared groggy. pt was re-evaluated and pt states she is just tired and needed some more rest. customs entry writer lowered pt gabapentin and psych ordered for re-evaluation. pt will be d/c tomorrow to her next level of care.
[2018-10-09] MEDS: TOPIRAMATE 200 MG, TOPIRAMATE 50 MG PO SCH (23:16)
[2018-10-09] MEDS: LURASIDONE HCL 40 MG TABLET PO SCH (23:16)
[2018-10-09] MEDS: LIDOCAINE PATCH REMOVAL MC SCH (23:16)
[2018-10-09] MEDS: SUVOREXANT 10 MG TABLET PO PRN (23:17)
[2018-10-09] MEDS: THIAMINE HCL 100 MG TABLET (FP) PO SCH (23:17)
[2018-10-10] MEDS ORDERED: METHADONE HCL 10 MG TABLET ONE (04:51)
[2018-10-10] MEDS ORDERED: METHADONE HCL 40 MG DISPERSABLE TABLET ONE (04:52)
[2018-10-10] MEDS ORDERED: chlordiazePOXIDE HCL 10 MG CAPSULE PO ONE (05:00)
[2018-10-10] MEDS: METHADONE 120 MG, METHADONE 30 MG PO SCH (05:50)
[2018-10-10] MEDS: GABAPENTIN 300 MG CAPSULE (FP) PO SCH (05:51)
[2018-10-10] MEDS: NICOTINE POLACRILEX 2 MG GUM BUC PRN (05:53)
--- NOTE | 2018-10-10 08:42 | DS ---
[facility] Detox Discharge Summary Admission Date: 10/05/18 Discharge Date: 10/10/18 - History Present History: Alcohol Dependence, MMTP - Physical Exam Results Vital Signs: Vital Signs Temperature 97.9 F 10/10/18 06:00 Pulse Rate 66 10/10/18 06:00 Respiratory Rate 18 10/10/18 06:00 Blood Pressure 114/63 10/10/18 06:00 O2 Sat by Pulse Oximetry (%) - Treatment Hospital Course: Detox Protocol Followed, Detoxed Safely, Responded well, Discharged Condition Good - Medication Discharge Medications: Ambulatory Orders Topiramate [Topamax -] 250 mg PO DAILY 09/11/16 Ibuprofen 600 mg PO ASDIR 08/30/17 Gabapentin 600 mg PO QID 10/05/18 Lurasidone HCl [Latuda] 80 mg PO HS 10/05/18 Methadone [Dolophine -] 150 mg PO DAILY 10/05/18 - Diagnosis (1) Alcohol dependence with uncomplicated withdrawal Current Visit: Yes Status: Chronic (2) Bipolar disorder Current Visit: Yes Status: Chronic Qualifiers: Current episode severity: unspecified (3) Fibromyalgia Current Visit: Yes Status: Chronic (4) Methadone maintenance therapy patient Current Visit: Yes Status: Chronic (5) Nicotine dependence Current Visit: Yes Status: Chronic Qualifiers: Nicotine product type: cigarettes Substance use status: uncomplicated Qualified Code(s): F17.210 - Nicotine dependence, cigarettes, uncomplicated - AMA Did Patient Leave Against Medical Advice: No (states she is going to rehab in [place]. )
[2018-10-10 09:28] VITALS: BP 128/83; PULSE 87; TEMP 98.2
== END 2018-10-10 09:50 | disposition home or self-care (01) | DRG 773 ==
LOC: YASAS 21:30 → Y6N 22:50
PROVIDERS: ADMIT Surgery; ATTEND Surgery
PROC: HZ2ZZZZ Detoxification Services for Substance Abuse Treatment (ICD-10-PCS; principal; 2018-10-05)
DX: F10.230 Alcohol dependence with withdrawal, uncomplicated (principal); F11.20 Opioid dependence, uncomplicated; F17.210 Nicotine dependence, cigarettes, uncomplicated; F19.24 Other psychoactive substance dependence with psychoactive substance-induced mood disorder; F19.282 Other psychoactive substance dependence with psychoactive substance-induced sleep disorder; F31.9 Bipolar disorder, unspecified; M79.7 Fibromyalgia; J20.9 Acute bronchitis, unspecified; I83.893 Varicose veins of bilateral lower extremities with other complications; E66.9 Obesity, unspecified; Z68.42 Body mass index [BMI] 45.0-49.9, adult
CPT/HCPCS: 36415; 80053; 81003; 81025; 85027; 86480; 86593